=== PATIENT | male | born 1955 | race Caucasian/White ===

== ENCOUNTER 2017-09-07 07:19 | Emergency (ER) | payer MEDICARE, MEDICAID ==
[~2017-09-07] VITALS: Ht 162.6 cm; Wt 74.0 kg
[2017-09-07 07:35] VITALS: BP 170/74; PULSE 89; RESP 16; TEMP 97.6; O2SAT 98
[2017-09-07] MEDS ORDERED: PANTOPRAZOLE SODIUM 40 MG VIAL IV PUSH ONE (07:45)
[2017-09-07] MEDS ORDERED: RESP: ALBUTEROL 2.5 MG/IPRATROPIUM 0.5 MG NEB (SCH) INH (07:45)
[2017-09-07] MEDS ORDERED: ONDANSETRON HCL 4 MG/2 ML VIAL IV PUSH ONE (07:45)
[2017-09-07] MEDS ORDERED: methylPREDNISolone SOD SUCC 125 MG/2 ML VIAL IV PUSH ONE (07:45)
[2017-09-07] MEDS ORDERED: SODIUM CHLORIDE 0.9% FLUSH 10 ML FLUSH IVF PRN (07:45)
[2017-09-07] MEDS ORDERED: SODIUM CHLOR 0.9% 1000 ML INJ 1,000 ML IV SCH (07:45)
[2017-09-07 07:51] VITALS: O2SAT 98
[2017-09-07 07:54] VITALS: BP 131/80; PULSE 82; RESP 16; O2SAT 99
[2017-09-07] MEDS ORDERED: CHOL5000 PO (08:08)
[2017-09-07] MEDS ORDERED: GLIP5TAB8 PO (08:08)
[2017-09-07] MEDS ORDERED: NOVO7030P2 SQ (08:08)
[2017-09-07] MEDS ORDERED: METO1TAB43 PO (08:08)
[2017-09-07] MEDS ORDERED: LOVA20TA PO (08:08)
[2017-09-07] MEDS ORDERED: SODI325T PO (08:08)
[2017-09-07] MEDS ORDERED: ASPI-516 CHEW (08:08)
[2017-09-07] MEDS ORDERED: AMLO10TA2 PO (08:08)
[2017-09-07] MEDS ORDERED: HYDR-3801 PO (08:08)
--- NOTE | 2017-09-07 08:10 | PD ---
HPI Chief Complaint: Respiratory Symptoms Time Seen by Provider: 07:40 Travel History International Travel<30 days: No Contact w/Intl Traveler<30days: No Traveled to known affect area: No History of Present Illness HPI 61-year-old male complains of elevated blood pressure and shortness of breath. Patient states the symptoms started this morning. Patient has history hypertension. Patient states that he checked his blood pressure this morning and it was 183/77. Patient states that he has some tingling sensation on the extremity. Patient states that he has shortness of breath this morning. Patient denies any headache. Patient denies any visual change. Patient denies any neck pain. Patient denies any chest pain. Patient denies coughing congestion fever chills. Patient denies abdominal pain. Patient denies any focal weakness or numbness of extremity. Patient has been taking his medications as directed. Patient has history of chronic kidney disease stage IV, diabetes, hyperkalemia, hyperlipidemia, hypertension, metabolic acidosis, monoclonal gammopathy, proteinuria, hypoparathyroidism, vitamin D deficiency. PFSH Past Medical History Hx Anticoagulant Therapy: Yes Cardiovascular Problems: Yes High Cholesterol: Yes Cerebrovascular Accident: Yes Diabetes: Yes Patient Takes Glucophage: No Diminished Hearing: No Hypertension: Yes ?: Not Past Surgical History Appendectomy: Yes Social History Alcohol Use: No Tobacco Use: No Substance Use: No Allergies-Medications (Allergen,Severity, Reaction): Coded Allergies: Penicillins (Verified Allergy, Severe, Nausea/Vomiting, 09/07/17) Reported Meds & Prescriptions Reported Meds & Active Scripts Active Reported Novolin 70-30 Inj (Insulin Human Isoph/Insulin Regular) 1,000 Unit/10 Ml Vial 30 Units SQ Hydralazine (Hydralazine HCl) 100 Mg Tab 50 Mg PO BID Take with meals Aspirin 81 Mg Chew 81 Mg CHEW DAILY Lovastatin 20 Mg Tab 20 Mg PO DAILY Amlodipine (Amlodipine Besylate) 10 Mg Tab 10 Mg PO DAILY Glipizide 5 Mg Tab 5 Mg PO BIDAC Take 30 minutes before a meal Metoprolol Succinate ER 24 HR (Metoprolol Succinate) 100 Mg Tab 100 Mg PO DAILY Vitamin D3 (Cholecalciferol) 5,000 Unit Cap 5,000 Units PO DAILY Sodium Bicarbonate 325 Mg Tab 325 Mg PO BIDPC Review of Systems General / Constitutional: No: Fever Eyes: No: Visual changes HENT: No: Headaches Cardiovascular: No: Chest Pain or Discomfort Respiratory: Positive: Shortness of Breath Gastrointestinal: No: Abdominal Pain Genitourinary: No: Dysuria Musculoskeletal: No: Pain Skin: No Rash Neurologic: No: Weakness Psychiatric: No: Depression Endocrine: No: Polydipsia Hematologic/Lymphatic: No: Easy Bruising Physical Exam Narrative GENERAL: Well-nourished, well-developed patient. SKIN: Focused skin assessment warm/dry. HEAD: Normocephalic. EYES: No scleral icterus. No injection or drainage. NECK: Supple, trachea midline. No JVD or lymphadenopathy. CARDIOVASCULAR: Regular rate and rhythm without murmurs, gallops, or rubs. RESPIRATORY: Breath sounds equal bilaterally. No accessory muscle use. GASTROINTESTINAL: Abdomen soft, non-tender, nondistended. MUSCULOSKELETAL: No cyanosis, or edema. BACK: Nontender without obvious deformity. No CVA tenderness. Neurologic exam normal. Data Data Last Documented VS Vital Signs Date Time Temp Pulse Resp B/P (MAP) Pulse Ox O2 Delivery O2 Flow Rate FiO2 09/07/17 07:54 82 16 131/80 (97) 99 Room Air 09/07/17 07:35 97.6 Orders Orders Electrocardiogram (09/07/17 07:41) Sodium Chlor 0.9% 1000 Ml Inj (Ns 1000 M (09/07/17 07:45) Sodium Chloride 0.9% Flush (Ns Flush) (09/07/17 07:45) Methylprednisolone So Succ Inj (Solumedr (09/07/17 07:45) Albuterol-Ipratropium Neb (Duoneb Neb) (09/07/17 07:45) Ondansetron Inj (Zofran Inj) (09/07/17 07:45) Pantoprazole Inj (Protonix Inj) (09/07/17 07:45) Basic Metabolic Panel (Bmp) (09/07/17 07:57) Chest, Single Ap (09/07/17 07:57) Complete Blood Count With Diff (09/07/17 07:58) Labs Laboratory Tests Test 09/07/17 08:03 White Blood Count 7.4 TH/MM3 Red Blood Count 3.88 MIL/MM3 Hemoglobin 11.3 GM/DL Hematocrit 33.7 % Mean Corpuscular Volume 86.9 FL Mean Corpuscular Hemoglobin 29.0 PG Mean Corpuscular Hemoglobin Concent 33.4 % Red Cell Distribution Width 12.9 % Platelet Count 235 TH/MM3 Mean Platelet Volume 7.9 FL Neutrophils (%) (Auto) 79.0 % Lymphocytes (%) (Auto) 12.5 % Monocytes (%) (Auto) 5.7 % Eosinophils (%) (Auto) 1.7 % Basophils (%) (Auto) 1.1 % Neutrophils # (Auto) 5.8 TH/MM3 Lymphocytes # (Auto) 0.9 TH/MM3 Monocytes # (Auto) 0.4 TH/MM3 Eosinophils # (Auto) 0.1 TH/MM3 Basophils # (Auto) 0.1 TH/MM3 CBC Comment DIFF FINAL Differential Comment Blood Urea Nitrogen 45 MG/DL Creatinine 4.94 MG/DL Random Glucose 213 MG/DL Calcium Level 8.1 MG/DL Sodium Level 138 MEQ/L Potassium Level 4.4 MEQ/L Chloride Level 108 MEQ/L Carbon Dioxide Level 20.1 MEQ/L Anion Gap 10 MEQ/L Estimat Glomerular Filtration Rate 12 ML/MIN MDM Medical Decision Making Medical Screen Exam Complete: Yes Emergency Medical Condition: Yes Interpretation(s) Last Impressions Chest X-Ray 09/07/17 0757 Signed Impressions: Service Date/Time: September 07:55 - CONCLUSION: Bibasilar subsegmental atelectasis. Jeffry Sandoval MD 8:39 AM. CBC within normal limit. Chloride 108. Bicarbonate 20.1. BUN 45. Creatinine 4.94. ESR 12. Glucose 213. Calcium 8.1. Differential Diagnosis Differential diagnosis including uncontrolled hypertension, hypertensive urgency , hypertensive crisis, bronchitis, pneumonia, PE, pneumothorax, viral syndrome. Narrative Course 61-year-old male with transient elevated blood pressure. History hypertension. Patient also complains shortness of breath. Diagnosis Primary Impression: Uncontrolled hypertension Patient Instructions: General Instructions Additional Instructions: Continue with medications as directed. Follow-up with personal physician. Return as needed. Med/Other Pt SpecificInfo: No Change to Meds Disposition: 01 DISCHARGE HOME Condition: Stable Varun Foote MD Sep 07, 2017 08:10
[2017-09-07 08:14] LABS: AUTOMATED NEUTROPHIL # 5.8 TH/MM3 (1.8-7.7); BASOPHIL # 0.1 TH/MM3 (0-0.2); BASOPHIL % 1.1 % (0.0-2.0); EOSINOPHIL # 0.1 TH/MM3 (0-0.4); EOSINOPHIL % 1.7 % (0.0-4.0); HEMATOCRIT 33.7 % (39.0-51.0); HEMOGLOBIN 11.3 GM/DL (13.0-17.0); LYMPH % 12.5 % (9.0-44.0); LYMPHOCYTE # 0.9 TH/MM3 (1.0-4.8); MEAN CELL VOLUME 86.9 FL (80.0-100.0); MEAN CORPUSCULAR HGB CONC 33.4 % (32.0-36.0); MEAN PLATELET VOLUME 7.9 FL (7.0-11.0); MONO % 5.7 % (0.0-8.0); MONOCYTE # 0.4 TH/MM3 (0-0.9); PLATELET COUNT 235 TH/MM3 (150-450); RED BLOOD COUNT 3.88 MIL/MM3 (4.50-5.90); RED CELL DISTRIBUTION WIDTH 12.9 % (11.6-17.2); WHITE BLOOD COUNT 7.4 TH/MM3 (4.0-11.0)
--- NOTE | 2017-09-07 08:15 | RADRPT ---
EXAM DATE/TIME: 09/07/2017 07:55 [facility] COMPARISON: No previous studies available for comparison. INDICATIONS : Short of breath with wheezing. MEDICAL HISTORY : None. SURGICAL HISTORY : None. ENCOUNTER: Initial ACUITY: 1 day PAIN SCORE: 0/10 LOCATION: Bilateral chest FINDINGS: A single view of the chest demonstrates minimal bibasilar subsegmental atelectasis without evidence o f mass, infiltrate or effusion. Heart normal in size. The cardiomediastinal contours are unremarkable . Osseous structures are intact. CONCLUSION: Bibasilar subsegmental atelectasis. Jeffry Sandoval MD on September 07, 2017 at 8:12 Board Certified Radiologist. This report was verified electronically.
[2017-09-07 08:34] LABS: BICARBONATE 20.1 MEQ/L (21.0-32.0); CALCIUM 8.1 MG/DL (8.5-10.1); CREATININE 4.94 MG/DL (0.60-1.30)
[2017-09-07 10:23] VITALS: BP 130/78; PULSE 78; RESP 15; O2SAT 98
--- NOTE | 2017-09-07 13:52 | EKG ---
Date Performed: 09/07/2017 Time Performed: 08:05:06 PTAGE: 61 years EKG: Sinus rhythm WITH FREQUENT VENTRICULAR PREMATURE COMPLEXES NONSPECIFIC T-WAVE ABNORMALITY ABNORMAL RHYTHM ECG NO PREVIOUS TRACING DOCTOR: Kristopher Antony Interpretating Date/Time 09/07/2017 13:52:22
== END 2017-09-07 10:25 | disposition home or self-care (01) ==
LOC: NEPC 07:19 → EDBD 07:19 → NEPC 10:25
DX: I12.9 Hypertensive chronic kidney disease with stage 1 through stage 4 chronic kidney disease, or unspecified chronic kidney disease (principal); E11.22 Type 2 diabetes mellitus with diabetic chronic kidney disease; N18.4 Chronic kidney disease, stage 4 (severe); R94.31 Abnormal electrocardiogram [ECG] [EKG]; E20.9 Hypoparathyroidism, unspecified; E78.5 Hyperlipidemia, unspecified; D47.2 Monoclonal gammopathy; E55.9 Vitamin D deficiency, unspecified; Z86.73 Personal history of transient ischemic attack (TIA), and cerebral infarction without residual deficits
CPT/HCPCS: 71045; 80048; 85025; 93005; 99285